=== PATIENT | female | born 1945 | race Caucasian/White ===

== ENCOUNTER 2018-12-29 00:49 | Emergency (ER) | payer OTHER ==
[2018-12-29] MEDS ORDERED: NS 500 ML IV ONE (01:27)
--- NOTE | 2018-12-29 01:37 | CPEKG ---
Test Reason : OPEN Blood Pressure : / mmHG Vent. Rate : 063 BPM Atrial Rate : 062 BPM P-R Int : 173 ms QRS Dur : 141 ms QT Int : 458 ms P-R-T Axes : 035 -53 027 degrees QTc Int : 469 ms Sinus rhythm RBBB and LAFB Left ventricular hypertrophy Confirmed by Harleen Erickson ([id number]) on 12/29/2018 1:37:08 AM Referred By: Harleen Erickson Confirmed By:Harleen Erickson
--- NOTE | 2018-12-29 01:58 | EDPHY ---
H & P Stated Complaint: Fall and hit back head as leg gave out. Time Seen by Provider: 12/29/18 00:54 HPI/ROS: CC: fall HPI: This 73-year-old female with past medical history of diabetes and hypothyroidism presents to emergency department today stating that she fell while trying to go up the steps into her mobile home. She had gone out to get fast food and had a bout of diarrhea. When she got home she was rushing to go up the steps and fell backwards off the first step leading into her mobile home. She does not think she lost consciousness. She has a bump on the back of her head and believe she may have hit her head on her car which was parked very close to the steps. She also thinks her left leg gave out on her. She complains of left groin pain, right elbow pain and right knee pain. She recently went on a 5 hr car ride with a friend of hers and felt that this caused her to become sore and stiff and have generalized low back pain and left hip pain from sitting restrained in a seatbelt "at a terrible angle" for the duration of the trip without many stops. She states she has diarrhea on and off and usually it is from her metformin but this time she thinks it is from eating yogurt without taking her lactose pill. She denies preceding symptoms such as headache, dizziness, chest pain, shortness of breath or abdominal pain. When asked if she might have symptoms of a urinary tract infection she said she has been urinating a little more frequently lately but does not have discomfort with urination. She denies recent illness. REVIEW OF SYSTEMS: Constitutional: No fever, no chills. Eyes: No discharge. ENT: No sore throat. Respiratory: No cough, no shortness of breath. Cardiac: No chest pain, no palpitations. Gastrointestinal: No abdominal pain, no vomiting. Genitourinary: No dysuria. Musculoskeletal: See HPI. Skin: No rashes. Neurological: No headache. 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 Past surgical history: Tonsillectomy, cataract surgery. Family history: Mother had colon cancer. Father had lung cancer. Sister had multiple sclerosis and uterine cancer. No known drug allergies Medications include metformin 500 mg twice a day, natural thyroid, coenzyme 10, vitamin-D 3, vitamins for her eyes, willow bark, [place] Primary care provider is Dr. Armani Caldwell [place]. She does not remember the last time she saw him. Hx Asthma: No Hx Chronic Respiratory Disease: No Hx Diabetes: Yes Hx Cardiac Disease: No Other PMH: stroke in eye. DM on Metformin. hypothyroid - Social History Smoking Status: Never smoked Additional Social History: Lives in a mobile home with a female friend. Denies tobacco use. Rare alcohol use usually on holidays or her birthday. No marijuana use. - Physical Exam Exam: General Appearance: Alert, mild distress. Ambulatory. Head: Soft tissue swelling (golf ball size) at the upper posterior aspect of scalp. No palpable bony step-offs. Neck: Mild midline tenderness at approximately C5-6. Back: No tenderness to palpation. Kyphosis. Eyes: Pupils equal and round no pallor or injection. ENT, Mouth: Mucous membranes are moist. No intra-oral injury. Able to open and close mouth without malocclusion but states bilateral jaw feels "sore." Respiratory: There are no retractions, lungs are clear to auscultation. No rales, rhonchi, or wheezing. Cardiovascular: Regular rate and rhythm. No murmurs, gallops, or rubs. Gastrointestinal: Abdomen is soft and nontender, no masses, bowel sounds normal. Neurological: Awake and alert, sensory and motor exams grossly normal. Skin: Warm and dry, no rashes. Small bruise near left elbow. Musculoskeletal: Pain with palpation of the left inguinal region. Full range of motion bilateral elbows and knees without discomfort. Extremities: Mild pretibial edema bilaterally. Dorsalis pedis pulses intact. Psychiatric: Patient is oriented X 3, there is no agitation. DIFFERENTIAL DIAGNOSIS: After history and physical exam differential diagnosis was considered for but not limited to and in no particular order: Mechanical fall, syncope, head contusion, intracranial injury, cervical spine injury, pelvic fracture, arrhythmia, electrolyte disorder, urinary tract infection. Constitutional: Initial Vital Signs Temperature (C) 98.8 F 12/29/18 01:00 Heart Rate 69 12/29/18 01:00 Respiratory Rate 18 12/29/18 01:00 Blood Pressure 204/85 H 12/29/18 01:00 O2 Sat (%) 97 12/29/18 01:00 O2 Delivery Mode Room Air Allergies/Adverse Reactions: No Known Allergies Allergy (Unverified 08/10/15 12:37) Home Medications: Medication Instructions Recorded Nature Thyroid 08/10/15 metFORMIN HCL [Metformin HCl ER] 1,000 mg PO BID #60 tab.er.[id number] 08/10/15 Medical Decision Making - Diagnostics EKG Interpretation: Normal sinus rhythm, heart rate 63, right bundle branch block and left anterior fascicular block, left ventricular hypertrophy. No prior EKG tracing available for comparison. Imaging: Discussed imaging studies w/ housecalls nurse Radiologist (Direct radiology preliminary report of pelvic CT showed no acute osseous abnormality. Preliminary report for head CT and cervical spine CT without contrast showed no evidence of acute intracranial process and no evidence of acute cervical spine fracture or subluxation.) ED Course/Re-evaluation: The patient was seen and examined. Vital signs reviewed and revealed an elevated blood pressure throughout her ER stay. An IV was placed and she was given 500 mL of normal saline. EKG showed a normal sinus rhythm with a heart rate of 63, right bundle branch block and a left anterior fascicular block and probable left ventricular hypertrophy. No prior EKG was in our system or in the [facility] system for review. The patient's CBC was remarkable only for a slightly low platelet count at 140. Her comprehensive metabolic panel was unremarkable and had a nonfasting blood glucose of 144. Lactic acid was normal. Urine showed 1+ leukocyte esterase and trace ketones. This was sent to the main lab for micro which is pending. Patient's head and cervical spine CT showed no acute abnormality. CT of her pelvis showed no acute osseous abnormality. The patient declined pain medication. She was advised that she needed to follow up with her primary care provider within the week and that she should review the tests done today in the ER especially her EKG and her blood pressure readings. Please see discharge instructions for details. The patient was advised to return to the emergency room immediately should she have any worsening symptoms as discussed. The patient's urine microscopy came back after discharge (patient wanted to leave prior to result). WBCs 10-25 with no epi's. Urine culture ordered. Will await result prior to ordering antibiotics as nursing states collection was not ideal. - Data Points Laboratory Results: 12/29/18 12/29/18 12/29/18 02:45 01:49 01:44 POC Sodium 144 mEq/L mEq/L (135-145) POC Potassium 4.0 mEq/L mEq/L (3.3-5.0) POC Chloride 101.0 mEq/L mEq/L (97-110) POC Total CO2 31 mEq/L mEq/L (22-31) POC BUN 15 mg/dL mg/dL (7-23) POC Creatinine 0.6 mg/dL mg/dL (0.6-1.0) POC Glucose 144 mg/dL H mg/dL (70-100) POC Lactic Acid Matthew 1.3 mmol/L mmol/L (0.7-2.1) POC Calcium 10.4 mg/dL mg/dL (8.5-10.4) POC Total Bilirubin 1.2 mg/dL mg/dL (0.1-1.4) POC AST 38 IU/L IU/L (14-46) POC ALT 30 IU/L IU/L (9-52) POC Alk Phosphatase 75 IU/L IU/L (38-126) POC Total Protein 7.8 g/dL g/dL (6.3-8.2) POC Albumin 4.1 g/dL g/dL (3.5-5.0) Urine Color JUAN MANUEL Urine Appearance MODERATELY TURBID Urine pH 6.0 (5.0-7.5) Ur Specific [place] 1.010 (1.002-1.030) Urine Protein NEGATIVE (NEGATIVE) Urine Ketones TRACE H (NEGATIVE) Urine Blood NEGATIVE (NEGATIVE) Urine Nitrate NEGATIVE (NEGATIVE) Urine Bilirubin NEGATIVE (NEGATIVE) Urine Urobilinogen NEGATIVE EU EU (0.2-1.0) Ur Leukocyte Esterase 1+ H (NEGATIVE) Urine RBC 1-3 /hpf /hpf (0-3) Urine WBC 15-25 /hpf H /hpf (0-3) Ur Epithelial Cells NONE SEEN /lpf /lpf (NONE-1+) Urine Bacteria 1+ /hpf H /hpf (NONE SEEN) Urine Mucus TRACE /lpf /lpf (NONE-1+) Urine Glucose NEGATIVE (NEGATIVE) Medications Given: Discontinued Medications Sodium Chloride (Ns) 500 mls @ 1,000 mls/hr IV EDNOW ONE PRN Reason: Protocol Stop: 12/29/18 01:56 Last Admin: 12/29/18 02:03 Dose: 500 mls Point of Care Test Results: CBC CBC Collection Date 12/29/18 CBC Collection Time 01:40 WBC 3.49 RBC 4.84 HGB 14.7 HCT 42.6 PLT 140 Neut # 2.35 Neut 67.3 LYMPH # 0.73 LYMPH 20.9 MCV 88.0 Chemistry 12/29/18 01:44 POC Sodium 144 mEq/L mEq/L (135-145) POC Potassium 4.0 mEq/L mEq/L (3.3-5.0) POC Chloride 101.0 mEq/L mEq/L (97-110) POC Total CO2 31 mEq/L mEq/L (22-31) POC BUN 15 mg/dL mg/dL (7-23) POC Creatinine 0.6 mg/dL mg/dL (0.6-1.0) POC Glucose 144 mg/dL H mg/dL (70-100) POC Calcium 10.4 mg/dL mg/dL (8.5-10.4) POC Total Bilirubin 1.2 mg/dL mg/dL (0.1-1.4) POC AST 38 IU/L IU/L (14-46) POC ALT 30 IU/L IU/L (9-52) POC Alk Phosphatase 75 IU/L IU/L (38-126) POC Total Protein 7.8 g/dL g/dL (6.3-8.2) POC Albumin 4.1 g/dL g/dL (3.5-5.0) Blood Gas/Lactic Acid-Venous 12/29/18 01:49 POC Lactic Acid Matthew 1.3 mmol/L mmol/L (0.7-2.1) Urine Dip Collection Date 12/29/18 Collection Time 02:45 Specific [place] (1.002-1.030) 1.010 PH (5.0-7.5) 6.0 Leukocytes (Negative) 1+ Nitrites (Negative) Negative Protein (Negative) Negative Glucose (Negative) Negative Ketones (Negative) Trace Urobilnogen (0.2-1.0 EU) 0.2 Bilirubin (Negative) Negative Blood (Negative) Negative Departure - Departure Disposition: Home, Routine, Self-Care Clinical Impression: Left groin pain Fall from steps Qualifiers: Encounter type: initial encounter Qualified Code(s): W10.9XXA - Fall (on) (from ) unspecified stairs and steps, initial encounter Head contusion Qualifiers: Encounter type: initial encounter Hypertension Qualifiers: Hypertension type: unspecified Qualified Code(s): I10 - Essential (primary) hypertension Condition: Good Instructions: Fall Prevention for Older Adults (ED), Head Injury (ED), Knee Pain (ED), Hypertension in the Older Adult (ED) Additional Instructions: Call Dr. Caldwell first thing in the morning to arrange follow up within one week. Tell them you are an ER follow up after falling on your stairs. Discuss your elevated blood pressure (you most likely will need to start blood pressure medication). Have him review your EKG done in the ER. Discuss your chronic right knee pain. He may want to get an x-ray of your knee. You may benefit from physical therapy. Your urine has been sent for further laboratory evaluation at our main lab. Please follow up on this result tomorrow or at your office visit with Dr. Caldwell. Let Dr. Caldwell know if your diarrhea continues. Inform Dr. Caldwell of all the over the counter supplements you are taking. You may also need your thyroid hormones rechecked. Return to the ER if you develop a headache, dizziness, chest pain, nausea, vomiting, new pains, or any other concerns. Referrals: Patient,NotPresent [Primary Care Provider] - As per Instructions ARMANI CALDWELL [Non Staff Provider ()] - As per Instructions
[2018-12-29 03:41] VITALS: BP 171/98
== END 2018-12-29 03:25 | disposition home or self-care (01) ==
LOC: CED 00:49
DX: S00.93XA Contusion of unspecified part of head, initial encounter (principal); R10.32 Left lower quadrant pain; I10 Essential (primary) hypertension; E11.9 Type 2 diabetes mellitus without complications; E86.9 Volume depletion, unspecified; W10.9XXA Fall (on) (from) unspecified stairs and steps, initial encounter
CPT/HCPCS: 70450-PO; 72125-PO; 72192-PO; 80053-ER; 83605-ER; 85025-QW-ER; 96360-ER; 99285-ER